=== PATIENT | male | born 1955 | race Caucasian/White ===

== ENCOUNTER → 2021-01-06 | Outpatient (CLI) | payer BC ==
--- NOTE | 2021-01-06 16:48 | Diagnostic Imaging Report ---
INDICATION: Wheezing. TECHNIQUE/COMPARISON: PA and lateral films of the chest were obtained at 4:28 PM with no prior study for comparison. FINDINGS: The heart and mediastinal silhouette are normal in appearance. The lungs show diffuse mild interstitial prominence which may be due to fibrotic change. There is no definite consolidation, pneumothorax, or pleural fluid. IMPRESSION: Diffuse interstitial prominence is present which may be chronic. We have no prior studies for comparison. There is no definite consolidation. Consider followup as clinically warranted. Dictated by: Dictated on workstation # [id number]
== END ==
LOC: RAD 15:32
PROVIDERS: ATTEND Internal Medicine
DX: R06.2 Wheezing (principal)
CPT/HCPCS: 71046

== ENCOUNTER → 2021-02-10 | Outpatient (CLI) | payer BC ==
--- NOTE | 2021-02-10 18:20 | Diagnostic Imaging Report ---
CT CHEST WO TECHNIQUE: Multiple contiguous axial images were obtained through the chest without the use of intravenous contrast. All CT scans use one or more of the following dose optimizing techniques: automated exposure control, MA and/or KvP adjustment based on a patient size and exam type, or iterative reconstruction. INDICATION: Shortness of breath. COMPARISON: None available. FINDINGS: Lungs and airway: No endoluminal nodule within trachea. Subpleural reticulations and traction bronchiectasis are present with mid and lower lung zone predominance. There are some stacked regions of subpleural cystic change in the medial aspect of both lower lobes indicative of honeycombing. No pulmonary mass or concerning nodule that would suggest neoplasm. Pleura: No pleural effusion or pneumothorax. Heart and mediastinum: Thyroid is normal. No supraclavicular or axillary lymphadenopathy. No mediastinal lymphadenopathy. Heart is borderline enlarged. Ascending aorta measures up to 4.7 cm. No pericardial effusion. Upper abdomen: No concerning abnormality in the upper abdomen. Musculoskeletal: No worrisome focal osseous lesions. IMPRESSION: 1. 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 Dictated by: Dictated on workstation # [id number]
== END ==
LOC: RAD 17:40
PROVIDERS: ATTEND Internal Medicine
DX: J84.10 Pulmonary fibrosis, unspecified (principal); M46.03 Spinal enthesopathy, cervicothoracic region
CPT/HCPCS: 71250